=== PATIENT | female | born 1980 | race Caucasian/White ===

== ENCOUNTER → 2019-04-22 | Outpatient (CLI) | payer OTHER ==
--- NOTE | 2019-04-22 12:11 | REP ---
PA LATERAL CHEST: 04/22/2019 Clinical history: Cough for 3 days. Findings: Two views are provided. No prior study. Lungs are marginally adequate in the degree of inflation but without infiltrate, effusion, atelectasis or mass. Some minor crowding of markings in the bases. A few cuffed bronchi in the perihilar regions No lateral pleural thickening apical scar, pneumothorax, mid and upper lung zones unremarkable heart, mediastinal and hilar contours, aorta and airway grossly intact. Bones unremarkable. Impression: 1. PA chest negative. 2. Nonspecific gas pattern without signs of obstruction, mass, free air, abnormal calcification, mass or acute bony finding. Electronically Signed by Zain Carr MD 04/22/2019 07:37 P
== END ==
LOC: M LRY 10:38
PROVIDERS: ATTEND Physician Assistant
DX: R05 Cough (principal)
CPT/HCPCS: 71046; G0463